=== PATIENT | male | born 1975 | race Hispanic/Latino ===

== ENCOUNTER 2018-05-06 18:55 | Emergency (ER) | payer MEDICAID ==
[2018-05-06] MEDS ORDERED: AMOXICILLIN/POTASSIUM CLAV 500-125 TABLET PO ONE (19:28)
[2018-05-06] MEDS ORDERED: IBUPROFEN 600 MG TABLET ONE (19:29)
== END 2018-05-06 20:05 | disposition home or self-care (01) ==
LOC: EDH 18:55
DX: H60.92 Unspecified otitis externa, left ear (principal); I10 Essential (primary) hypertension; Z90.49 Acquired absence of other specified parts of digestive tract; Z87.891 Personal history of nicotine dependence

== ENCOUNTER 2019-04-03 11:03 | Emergency (ER) | payer MEDICAID ==
[2019-04-03] MEDS ORDERED: DIPHENHYDRAMINE HCL 25 MG CAPSULE ONE (11:47)
== END 2019-04-03 12:18 | disposition home or self-care (01) ==
LOC: EDH 11:03
DX: L23.9 Allergic contact dermatitis, unspecified cause (principal); S61.219A Laceration without foreign body of unspecified finger without damage to nail, initial encounter; K56.609 Unspecified intestinal obstruction, unspecified as to partial versus complete obstruction; I10 Essential (primary) hypertension; X58.XXXA Exposure to other specified factors, initial encounter; Y93.89 Activity, other specified; Y92.89 Other specified places as the place of occurrence of the external cause; Y99.8 Other external cause status
CPT/HCPCS: 99283; Q0163

== ENCOUNTER 2020-04-25 10:42 | Emergency (ER) | payer MEDICAID ==
[2020-04-25] MEDS ORDERED: KETOROLAC 60 MG VIAL (30MG/ML) ONE (11:06)
[2020-04-25] MEDS ORDERED: CLONIDINE HCL 0.1 MG TABLET ONE (11:06)
== END 2020-04-25 13:37 | disposition home or self-care (01) ==
LOC: EDH 10:42
DX: M25.562 Pain in left knee (principal); M25.561 Pain in right knee; I10 Essential (primary) hypertension
CPT/HCPCS: 73562 ×2; 96372; 99283; J1885